=== PATIENT | male | born 1995 | race Caucasian/White ===

== ENCOUNTER 2017-03-20 20:06 | Emergency (ER) | payer OTHER, SELFPAY ==
[2017-03-20] MEDS ORDERED: Adacel (T-DAP) 0.5 ML VIAL ONE (20:22)
[2017-03-20] MEDS ORDERED: Amoxicillin/Potassium Clav 875 MG TAB ONE (20:38)
== END 2017-03-20 20:42 | disposition home or self-care (01) ==
LOC: NAV ERS 20:06
DX: S11.91XA Laceration without foreign body of unspecified part of neck, initial encounter (principal); S40.812A Abrasion of left upper arm, initial encounter; F84.5 Asperger's syndrome; J45.909 Unspecified asthma, uncomplicated; F25.9 Schizoaffective disorder, unspecified; F41.9 Anxiety disorder, unspecified; F32.9 Major depressive disorder, single episode, unspecified; W54.0XXA Bitten by dog, initial encounter
CPT/HCPCS: 90471; 90715

== ENCOUNTER 2020-04-06 12:51 | Emergency (ER) | payer OTHER ==
[2020-04-06] MEDS ORDERED: Lidocaine 1% (PF) 30 ML VIAL ONE (13:33)
--- NOTE | 2020-04-06 13:37 | RAD ---
RIGHT FIFTH FINGER 2 VIEWS: DATE: 04/06/2020 HISTORY: Injury. FINDINGS: No acute fracture or dislocation, or other significant osseous process. If the patient has persistent or worsening or nonresolving pain, consider follow-up examination in 1-2 weeks. IMPRESSION: No acute fracture or dislocation. POS: [facility]RE
[2020-04-06] MEDS ORDERED: Triple Antibiotic Oint 1 GM Packet ONE (13:56)
== END 2020-04-06 14:00 | disposition home or self-care (01) ==
LOC: NAV ERS 12:51
DX: S61.216A Laceration without foreign body of right little finger without damage to nail, initial encounter (principal); F41.9 Anxiety disorder, unspecified; F32.9 Major depressive disorder, single episode, unspecified; Z79.899 Other long term (current) drug therapy; W25.XXXA Contact with sharp glass, initial encounter
CPT/HCPCS: 12001; J2001